=== PATIENT | male | born 1990 | race Caucasian/White ===

== ENCOUNTER 2018-01-13 00:11 | Inpatient (IN) ==
--- NOTE | 2018-01-13 00:38 | Emergency Department Note ---
Disposition Clinical Impression: Acute psychosis, TITUS (acute kidney injury), Uremia, Suicidal ideations Rhabdomyolysis Qualifiers: Rhabdomyolysis type: non-traumatic Qualified Code(s): M62.82 - Rhabdomyolysis Disposition: Admitted As Inpatient Condition: Fair Referrals: NONE,PCP [Primary Care Provider] - Forms: ED Satisfaction Letter Psych HPI - General Chief Complaint: ED Psychiatric Symptoms Stated Complaint: SI Time Seen by Provider: 01/13/18 00:22 Source: patient Nursing Notes Reviewed: Yes Vital Signs Reviewed: Yes - History of Present Illness HPI Narrative: 27-year-old male presents emergency department with concern for having suicidal thoughts. Reports no specific plan, but states that he was to kill himself. He also states that he is seeing things. Reports seeing people behind the couch watching him. He is not hearing any voices. Reports no pain anywhere. - Related Data Allergies Allergy/AdvReac Type Severity Reaction Status Date / Time No Known Allergies Allergy Verified 01/13/18 00:15 All systems ED: reviewed and negative except as stated. 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 Absent: respiratory distress - Cardiovascular Cardiovascular exam: Present: tachycardia - Abdominal Exam Abdominal exam: Present: soft, Non-Tender. Absent: distention, guarding, rebound, rigidity - Extremities Exam Extremities exam: Present: normal capillary refill - Neurological Exam Neurological exam: Present: alert, oriented X3 - Psychiatric Psychiatric exam: Present: anxious, suicidal ideation - Skin Skin exam: Present: warm, dry, intact, normal color Course Vital Signs Temperature 97.9 F 01/13/18 00:15 Pulse Rate 104 01/13/18 00:15 Respiratory Rate 18 01/13/18 00:15 Blood Pressure 121/95 01/13/18 00:15 O2 Sat by Pulse Oximetry 99 01/13/18 00:15 Temperature 97.9 F 01/13/18 00:15 Pulse Rate 96 01/13/18 03:00 Respiratory Rate 20 01/13/18 03:00 Blood Pressure 139/110 01/13/18 03:00 O2 Sat by Pulse Oximetry 100 01/13/18 03:00 Oxygen Delivery Oxygen Delivery Room Air Psych - MDM Narrative Medical decision making narrative: 27-year-old male presents emergency department with concern for suicidal thoughts, visual hallucinations. Patient appears very anxious. He was pink slipped. Patient has sodium of 122. Potassium of 2.7. BUN 120. Creatinine 4.62. No previous labs to compare this to. Patient was given 2 L of normal saline. He was given 40 mEq of oral potassium as well as 40 mEq of potassium via K rider. 2 g of magnesium were ordered as well. Patient's acute renal failure most likely secondary to drug ingestion and rhabdomyolysis as patient has a creatinine kinase of 4052. Patient reports using methamphetamine. Obtained EKG. Mildly prolonged QT interval and right axis deviation. Patient not expressing any symptoms of presyncope or syncope. Troponin was 0.04. Most likely secondary to his acute renal failure. No ischemic ST changes on EKG. Chest x-ray did not reveal any acute abnormality. Patient accepted for admission by the hospitalist. Chest X-Ray 01/13/18 02:54 IMPRESSION: No acute findings. D/ / Stephan Padilla / Stephan Padilla Interpreting Provider: Stephan Padilla Vital Signs Temperature 97.9 F 01/13/18 00:15 Pulse Rate 104 01/13/18 00:15 Respiratory Rate 18 01/13/18 00:15 Blood Pressure 121/95 01/13/18 00:15 O2 Sat by Pulse Oximetry 99 01/13/18 00:15 Temperature 97.9 F 01/13/18 00:15 Pulse Rate 96 01/13/18 03:00 Respiratory Rate 20 01/13/18 03:00 Blood Pressure 139/110 01/13/18 03:00 O2 Sat by Pulse Oximetry 100 01/13/18 03:00 Oxygen Delivery Oxygen Delivery Room Air - Lab Data Result diagrams: 01/13/18 00:40 01/13/18 00:40 Lab Results 01/13/18 01/13/18 01/13/18 Range/Units 00:32 00:32 00:32 WBC (4.3-11.1) K/mcL RBC (4.19-5.50) M/mcL Hgb (12.9-16.9) g/dL Hct (37.5-50.1) % MCV (83.0-100.0) fL MCH (28.0-33.3) pg MCHC (31.6-35.5) g/dL RDW (11.5-14.5) % Plt Count (140-400) K/mcL MPV (9.4-12.4) fL Immature Gran % (0-4) % Seg Neutrophils % % Lymphocytes % % Monocytes % % Eosinophils % % Basophils % % Neutrophils # (1.6-8.9) K/mcL Lymphocytes # (0.6-4.6) K/mcL Monocytes # (0.0-1.3) K/mcL Eosinophils # (0.0-0.6) K/mcL Basophils # (0.0-0.2) K/mcL Sodium (136-145) mEq/L Potassium (3.5-5.1) mEq/L Chloride (98-107) mEq/L Carbon Dioxide (23-29) mEq/L BUN (6-20) mg/dL Creatinine (0.70-1.30) mg/dL Est GFR ( Amer) (> 60) Est GFR (Non-Af Amer) (> 60) BUN/Creatinine Ratio (6-26) Glucose (70-105) mg/dL Calculated Osmolality (280-300) Lactic Acid (0.5-2.2) mmol/L Calcium (8.6-10.3) mg/dL Phosphorus (2.7-4.5) mg/dL Total Bilirubin (0.3-1.0) mg/dL Direct Bilirubin (0.0-0.2) mg/dL Indirect Bilirubin (0.0-1.2) mg/dL AST (13-39) Units/L ALT (7-52) Units/L Alkaline Phosphatase (34-104) Units/L Creatine Kinase (30-223) Units/L Troponin I (< 0.04) ng/mL B-Natriuretic Peptide (Less than 100) pg/mL Serum Total Protein (6.4-8.9) g/dL Albumin (3.5-5.7) g/dL Globulin (2.4-3.5) g/dL Albumin/Globulin Ratio (1.1-2.2) Urine Color Yellow (Yellow) Urine Clarity Clear (Clear) Urine pH 6.0 (5.0-8.0) pH Units Ur Specific [place] 1.020 (1.010-1.025) Urine Protein 30 H (Neg-Trace) mg/dL Urine Glucose (UA) Normal (Normal) mg/dL Urine Ketones Negative (Negative) mg/dL Urine Blood Moderate H (Negative) Urine Nitrite Negative (Negative) Urine Bilirubin Small H (Negative) Urine Urobilinogen Normal (Normal) mg/dL Ur Leukocyte Esterase Negative (Negative) Urine Microscopic RBC 0-3 (0-3) per hpf Urine Microscopic WBC 5-15 H (0-3) per hpf Ur Squamous Epith Cells Many H (None-Few) per lpf Urine Bacteria Few (None-Few) per hpf Hyaline Casts Few (None-Few) per lpf Urine Creatinine 165 mg/dL Urine Sodium 16.0 mEq/L Salicylates (15.0-30.0) mg/dL Urine Opiates Screen Negative (Thjfcc=691) ng/mL Acetaminophen (10-20) mcg/mL Ur Barbiturates Screen Negative (Iawwqv=992) ng/mL Ur Phencyclidine Scrn Negative (Cutoff=25) ng/mL Ur Amphetamines Screen Positive H (Vbenuc=0331) ng/mL U Benzodiazepines Scrn Negative (Vqogdu=956) ng/mL Urine Cocaine Screen Negative (Cutoff= 300) ng/mL U Marijuana (THC) Screen Negative (Cutoff = 50) ng/mL Ur Drug Screen Interp See Below Ethyl Alcohol (Less than 10) mg/dL 01/13/18 01/13/18 01/13/18 Range/Units 00:40 00:40 00:40 WBC 8.9 (4.3-11.1) K/mcL RBC 5.46 (4.19-5.50) M/mcL Hgb 16.1 (12.9-16.9) g/dL Hct 44.2 (37.5-50.1) % MCV 81.0 L (83.0-100.0) fL MCH 29.5 (28.0-33.3) pg MCHC 36.4 H (31.6-35.5) g/dL RDW 12.4 (11.5-14.5) % Plt Count 381 (140-400) K/mcL MPV 10.0 (9.4-12.4) fL Immature Gran % 0.3 (0-4) % Seg Neutrophils % 71.3 % Lymphocytes % 10.7 % Monocytes % 17.2 % Eosinophils % 0.3 % Basophils % 0.2 % Neutrophils # 6.4 (1.6-8.9) K/mcL Lymphocytes # 1.0 (0.6-4.6) K/mcL Monocytes # 1.5 H (0.0-1.3) K/mcL Eosinophils # 0.0 (0.0-0.6) K/mcL Basophils # 0.0 (0.0-0.2) K/mcL Sodium 122 L (136-145) mEq/L Potassium 2.7 L (3.5-5.1) mEq/L Chloride 84 L (98-107) mEq/L Carbon Dioxide 16 L (23-29) mEq/L BUN 120 H (6-20) mg/dL Creatinine 4.62 H (0.70-1.30) mg/dL Est GFR ( Amer) 19 L (> 60) Est GFR (Non-Af Amer) 15 L (> 60) BUN/Creatinine Ratio 26 (6-26) Glucose 167 H (70-105) mg/dL Calculated Osmolality 296 (280-300) Lactic Acid (0.5-2.2) mmol/L Calcium 9.0 (8.6-10.3) mg/dL Phosphorus 9.1 H (2.7-4.5) mg/dL Total Bilirubin 0.5 (0.3-1.0) mg/dL Direct Bilirubin 0.1 (0.0-0.2) mg/dL Indirect Bilirubin 0.4 (0.0-1.2) mg/dL AST 88 H (13-39) Units/L ALT 134 H (7-52) Units/L Alkaline Phosphatase 99 (34-104) Units/L Creatine Kinase 4052 H (30-223) Units/L Troponin I 0.04 H* (< 0.04) ng/mL B-Natriuretic Peptide (Less than 100) pg/mL Serum Total Protein 8.6 (6.4-8.9) g/dL Albumin 4.8 (3.5-5.7) g/dL Globulin 3.8 H (2.4-3.5) g/dL Albumin/Globulin Ratio 1.3 (1.1-2.2) Urine Color (Yellow) Urine Clarity (Clear) Urine pH (5.0-8.0) pH Units Ur Specific [place] (1.010-1.025) Urine Protein (Neg-Trace) mg/dL Urine Glucose (UA) (Normal) mg/dL Urine Ketones (Negative) mg/dL Urine Blood (Negative) Urine Nitrite (Negative) Urine Bilirubin (Negative) Urine Urobilinogen (Normal) mg/dL Ur Leukocyte Esterase (Negative) Urine Microscopic RBC (0-3) per hpf Urine Microscopic WBC (0-3) per hpf Ur Squamous Epith Cells (None-Few) per lpf Urine Bacteria (None-Few) per hpf Hyaline Casts (None-Few) per lpf Urine Creatinine mg/dL Urine Sodium mEq/L Salicylates < 2.5 L (15.0-30.0) mg/dL Urine Opiates Screen (Sebkiy=971) ng/mL Acetaminophen < 10 L (10-20) mcg/mL Ur Barbiturates Screen (Galqpb=132) ng/mL Ur Phencyclidine Scrn (Cutoff=25) ng/mL Ur Amphetamines Screen (Zquttz=8205) ng/mL U Benzodiazepines Scrn (Itlrux=353) ng/mL Urine Cocaine Screen (Cutoff= 300) ng/mL U Marijuana (THC) Screen (Cutoff = 50) ng/mL Ur Drug Screen Interp Ethyl Alcohol < 10 (Less than 10) mg/dL 01/13/18 01/13/18 Range/Units 02:13 02:54 WBC (4.3-11.1) K/mcL RBC (4.19-5.50) M/mcL Hgb (12.9-16.9) g/dL Hct (37.5-50.1) % MCV (83.0-100.0) fL MCH (28.0-33.3) pg MCHC (31.6-35.5) g/dL RDW (11.5-14.5) % Plt Count (140-400) K/mcL MPV (9.4-12.4) fL Immature Gran % (0-4) % Seg Neutrophils % % Lymphocytes % % Monocytes % % Eosinophils % % Basophils % % Neutrophils # (1.6-8.9) K/mcL Lymphocytes # (0.6-4.6) K/mcL Monocytes # (0.0-1.3) K/mcL Eosinophils # (0.0-0.6) K/mcL Basophils # (0.0-0.2) K/mcL Sodium (136-145) mEq/L Potassium (3.5-5.1) mEq/L Chloride (98-107) mEq/L Carbon Dioxide (23-29) mEq/L BUN (6-20) mg/dL Creatinine (0.70-1.30) mg/dL Est GFR ( Amer) (> 60) Est GFR (Non-Af Amer) (> 60) BUN/Creatinine Ratio (6-26) Glucose (70-105) mg/dL Calculated Osmolality (280-300) Lactic Acid 1.1 (0.5-2.2) mmol/L Calcium (8.6-10.3) mg/dL Phosphorus (2.7-4.5) mg/dL Total Bilirubin (0.3-1.0) mg/dL Direct Bilirubin (0.0-0.2) mg/dL Indirect Bilirubin (0.0-1.2) mg/dL AST (13-39) Units/L ALT (7-52) Units/L Alkaline Phosphatase (34-104) Units/L Creatine Kinase (30-223) Units/L Troponin I (< 0.04) ng/mL B-Natriuretic Peptide 18 (Less than 100) pg/mL Serum Total Protein (6.4-8.9) g/dL Albumin (3.5-5.7) g/dL Globulin (2.4-3.5) g/dL Albumin/Globulin Ratio (1.1-2.2) Urine Color (Yellow) Urine Clarity (Clear) Urine pH (5.0-8.0) pH Units Ur Specific [place] (1.010-1.025) Urine Protein (Neg-Trace) mg/dL Urine Glucose (UA) (Normal) mg/dL Urine Ketones (Negative) mg/dL Urine Blood (Negative) Urine Nitrite (Negative) Urine Bilirubin (Negative) Urine Urobilinogen (Normal) mg/dL Ur Leukocyte Esterase (Negative) Urine Microscopic RBC (0-3) per hpf Urine Microscopic WBC (0-3) per hpf Ur Squamous Epith Cells (None-Few) per lpf Urine Bacteria (None-Few) per hpf Hyaline Casts (None-Few) per lpf Urine Creatinine mg/dL Urine Sodium mEq/L Salicylates (15.0-30.0) mg/dL Urine Opiates Screen (Ercyju=837) ng/mL Acetaminophen (10-20) mcg/mL Ur Barbiturates Screen (Fsgwmw=242) ng/mL Ur Phencyclidine Scrn (Cutoff=25) ng/mL Ur Amphetamines Screen (Ytsxty=0657) ng/mL U Benzodiazepines Scrn (Osphdi=026) ng/mL Urine Cocaine Screen (Cutoff= 300) ng/mL U Marijuana (THC) Screen (Cutoff = 50) ng/mL Ur Drug Screen Interp Ethyl Alcohol (Less than 10) mg/dL - EKG Data EKG attestation: Yes I reviewed and interpreted this EKG. EKG results narrative: 1:54 Heart rate 95 bpm, UT interval 125 ms, QRS duration 112 ms, QTC 493 ms, right axis deviation. Left ventricular hypertrophy, no ischemic ST changes noted. No previous EKG to compare this study to. Psychiatric Medical Clearance - Medical Clearance Checklist Medical History: No Social History Section defined Current Vitals: Last Vital Signs Temp 97.9 F 01/13/18 00:15 Pulse 96 01/13/18 03:00 Resp 20 01/13/18 03:00 BP 139/110 01/13/18 03:00 Pulse Ox 100 01/13/18 03:00 Psychiatric Lab Panel: Drug Levels and Toxicity 01/13/18 01/13/18 00:32 00:40 Urine Opiates Screen Negative Acetaminophen < 10 L Ur Barbiturates Screen Negative Ur Phencyclidine Scrn Negative Ur Amphetamines Screen Positive H U Benzodiazepines Scrn Negative Urine Cocaine Screen Negative U Marijuana (THC) Screen Negative Ethyl Alcohol < 10 Abnormal Labs: Abnormal lab results MCV 81.0 fL (83.0-100.0) L 10/12/18 00:40 MCHC 36.4 g/dL (31.6-35.5) H 01/13/18 00:40 Monocytes # 1.5 K/mcL (0.0-1.3) H 01/13/18 00:40 Sodium 122 mEq/L (136-145) L 01/13/18 00:40 Potassium 2.7 mEq/L (3.5-5.1) L 01/13/18 00:40 Chloride 84 mEq/L (98-107) L 01/13/18 00:40 Carbon Dioxide 16 mEq/L (23-29) L 01/13/18 00:40 BUN 120 mg/dL (6-20) H 01/13/18 00:40 Creatinine 4.62 mg/dL (0.70-1.30) H 01/13/18 00:40 Est GFR ( Amer) 19 (> 60) L 01/13/18 00:40 Est GFR (Non-Af Amer) 15 (> 60) L 01/13/18 00:40 Glucose 167 mg/dL (70-105) H 01/13/18 00:40 Phosphorus 9.1 mg/dL (2.7-4.5) H 01/13/18 00:40 AST 88 Units/L (13-39) H 01/13/18 00:40 ALT 134 Units/L (7-52) H 01/13/18 00:40 Creatine Kinase 4052 Units/L (30-223) H 01/13/18 00:40 Troponin I 0.04 ng/mL (< 0.04) H* 01/13/18 00:40 Globulin 3.8 g/dL (2.4-3.5) H 01/13/18 00:40 Urine Protein 30 mg/dL (Neg-Trace) H 01/13/18 00:32 Urine Blood Moderate (Negative) H 01/13/18 00:32 Urine Bilirubin Small (Negative) H 01/13/18 00:32 Urine Microscopic WBC 5-15 per hpf (0-3) H 01/13/18 00:32 Ur Squamous Epith Cells Many per lpf (None-Few) H 01/13/18 00:32 Salicylates < 2.5 mg/dL (15.0-30.0) L 01/13/18 00:40 Acetaminophen < 10 mcg/mL (10-20) L 01/13/18 00:40 Ur Amphetamines Screen Positive ng/mL (Avmuml=3385) H 01/13/18 00:32 Statement of Medical Clearance: I have evaluated the patient, reviewed diagnostic information, and certify that the patient's medical condition is sufficiently stable that transfer to the psychiatric unit does not pose a significant risk of deterioration.
[2018-01-13 00:50] LABS: Bilirubin,Urine Small (Negative); Blood,Urine Moderate (Negative); Clarity,Urine Clear (Clear); Color,Urine Yellow (Yellow); Glucose,Urine (UA) Normal (Normal); Ketones,Urine Negative (Negative); Leukocyte Esterase,Urine Negative (Negative); Nitrite,Urine Negative (Negative); Protein,Urine 30 mg/dL (Neg-Trace); Urobilinogen,Urine Normal (Normal)
[2018-01-13 00:52] LABS: Hyaline Casts,Urine Few per lpf (None-Few); RBC,Urine 0-3 per hpf (0-3); Squamous Epithelial Cell,Urine Many per lpf (None-Few)
[2018-01-13 01:02] LABS: Amphetamine Screen,Urine Positive ng/mL (Cutoff=1000); Barbiturate Screen,Urine Negative ng/mL (Cutoff=200); Benzodiazepines Screen,Urine Negative ng/mL (Cutoff=200); Cannabinoid Screen,Urine Negative ng/mL (Cutoff = 50); Cocaine Screen,Urine Negative ng/mL (Cutoff= 300); Opiate Screen,Urine Negative ng/mL (Cutoff=300); Phencyclidine Screen,Urine Negative ng/mL (Cutoff=25)
[2018-01-13 01:08] LABS: Bacteria,Urine Few per hpf (None-Few)
[2018-01-13 01:29] LABS: Basophils % 0.2 %; Eosinophils % 0.3 %; Hematocrit 44.2 % (37.5-50.1); Hemoglobin 16.1 g/dL (12.9-16.9); Immature Granulocytes % 0.3 % (0-4); Lymphocytes % 10.7 %; Mean Corpuscular HGB Conc 36.4 g/dL (31.6-35.5); Mean Corpuscular Hemoglobin 29.5 pg (28.0-33.3); Monocytes # 1.5 K/mcL (0.0-1.3); Monocytes % 17.2 %; Neutrophils # 6.4 K/mcL (1.6-8.9); Platelet Count 381 K/mcL (140-400); Red Blood Count 5.46 M/mcL (4.19-5.50); Red Cell Distribution Width 12.4 % (11.5-14.5); Segmented Neutrophils % 71.3 %
[2018-01-13 01:32] LABS: Acetaminophen < 10 mcg/mL (10-20); BUN/Creatinine Ratio 26 (6-26); Blood Urea Nitrogen 120 mg/dL (6-20); Carbon Dioxide 16 mEq/L (23-29); Chloride 84 mEq/L (98-107); Ethanol < 10 mg/dL (Less than 10); Glucose 167 mg/dL (70-105); Osmolality,Calculated 296 (280-300); Potassium 2.7 mEq/L (3.5-5.1); Salicylate < 2.5 mg/dL (15.0-30.0); Sodium 122 mEq/L (136-145); eGFR For Non-African Americans 15 (> 60)
[2018-01-13] MEDS ORDERED: 0.9 % Sodium Chloride 1,000 ML IVC ONE (01:40)
[2018-01-13] MEDS ORDERED: Potassium Chloride 40 MEQ, Lidocaine 1% 2 ML in D5% in Water 500 ML IVPB ONE (01:43)
[2018-01-13] MEDS ORDERED: *HR* LORazepam 2 MG/ML VIAL IVP ONE (01:46)
[2018-01-13 03:53] LABS: Alanine Aminotransferase 134 Units/L (7-52); Albumin 4.8 g/dL (3.5-5.7); Albumin/Globulin Ratio 1.3 (1.1-2.2); Alkaline Phosphatase 99 Units/L (34-104); Aspartate Amino Transferase 88 Units/L (13-39); Bilirubin,Direct 0.1 mg/dL (0.0-0.2); Bilirubin,Indirect 0.4 mg/dL (0.0-1.2); Bilirubin,Total 0.5 mg/dL (0.3-1.0); Globulin 3.8 g/dL (2.4-3.5); Phosphorous 9.1 mg/dL (2.7-4.5); Total Protein 8.6 g/dL (6.4-8.9)
--- NOTE | 2018-01-13 03:57 | Emergency Department Note ---
Disposition Clinical Impression: Acute psychosis, TITUS (acute kidney injury), Uremia, Suicidal ideations Rhabdomyolysis Qualifiers: Rhabdomyolysis type: non-traumatic Qualified Code(s): M62.82 - Rhabdomyolysis Disposition: Admitted As Inpatient Condition: Fair Referrals: NONE,PCP [Primary Care Provider] - Forms: ED Satisfaction Letter General Adult HPI - General Chief complaint: ED Psychiatric Symptoms Stated complaint: SI Time Seen by Provider: 01/13/18 00:22 Source: patient Limitations: no limitations Nursing Notes Reviewed: Yes Vital Signs Reviewed: Yes - History of Present Illness Pain Scale: 0 - Related Data Allergies Allergy/AdvReac Type Severity Reaction Status Date / Time No Known Allergies Allergy Verified 01/13/18 00:15 Constitutional: Denies: fever Cardiovascular: Denies: chest pain Respiratory: Denies: dyspnea Gastrointestinal: Denies: abdominal pain Genitourinary: Reports: other (Decreased urine output) Musculoskeletal: Denies: back pain Integumentary: Denies: rash Neurological: Denies: headache Past Medical History - Past Medical History Medical history: Reports: no medical history Psychiatric history: Reports: anxiety, ADHD, bipolar - Social History Smoking Status: Never smoker Smokeless Tobacco Status: Yes Alcohol use: Reports: none Drug use: Reports: methamphetamine Physical Exam - General Limitations: no limitations General appearance: alert Course Vital Signs Temperature 97.9 F 01/13/18 00:15 Pulse Rate 104 01/13/18 00:15 Respiratory Rate 18 01/13/18 00:15 Blood Pressure 121/95 01/13/18 00:15 O2 Sat by Pulse Oximetry 99 01/13/18 00:15 Temperature 97.9 F 01/13/18 00:15 Pulse Rate 96 01/13/18 03:00 Respiratory Rate 20 01/13/18 03:00 Blood Pressure 139/110 01/13/18 03:00 O2 Sat by Pulse Oximetry 100 01/13/18 03:00 Oxygen Delivery Oxygen Delivery Room Air Medical Decision Making - Lab Data Lab results reviewed: Yes I reviewed the patient's lab results. Result diagrams: 01/13/18 00:40 01/13/18 00:40 Lab Results 01/13/18 01/13/18 01/13/18 Range/Units 00:32 00:32 00:32 WBC (4.3-11.1) K/mcL RBC (4.19-5.50) M/mcL Hgb (12.9-16.9) g/dL Hct (37.5-50.1) % MCV (83.0-100.0) fL MCH (28.0-33.3) pg MCHC (31.6-35.5) g/dL RDW (11.5-14.5) % Plt Count (140-400) K/mcL MPV (9.4-12.4) fL Immature Gran % (0-4) % Seg Neutrophils % % Lymphocytes % % Monocytes % % Eosinophils % % Basophils % % Neutrophils # (1.6-8.9) K/mcL Lymphocytes # (0.6-4.6) K/mcL Monocytes # (0.0-1.3) K/mcL Eosinophils # (0.0-0.6) K/mcL Basophils # (0.0-0.2) K/mcL Sodium (136-145) mEq/L Potassium (3.5-5.1) mEq/L Chloride (98-107) mEq/L Carbon Dioxide (23-29) mEq/L BUN (6-20) mg/dL Creatinine (0.70-1.30) mg/dL Est GFR ( Amer) (> 60) Est GFR (Non-Af Amer) (> 60) BUN/Creatinine Ratio (6-26) Glucose (70-105) mg/dL Calculated Osmolality (280-300) Lactic Acid (0.5-2.2) mmol/L Calcium (8.6-10.3) mg/dL Phosphorus (2.7-4.5) mg/dL Total Bilirubin (0.3-1.0) mg/dL Direct Bilirubin (0.0-0.2) mg/dL Indirect Bilirubin (0.0-1.2) mg/dL AST (13-39) Units/L ALT (7-52) Units/L Alkaline Phosphatase (34-104) Units/L Creatine Kinase (30-223) Units/L Troponin I (< 0.04) ng/mL B-Natriuretic Peptide (Less than 100) pg/mL Serum Total Protein (6.4-8.9) g/dL Albumin (3.5-5.7) g/dL Globulin (2.4-3.5) g/dL Albumin/Globulin Ratio (1.1-2.2) Urine Color Yellow (Yellow) Urine Clarity Clear (Clear) Urine pH 6.0 (5.0-8.0) pH Units Ur Specific [place] 1.020 (1.010-1.025) Urine Protein 30 H (Neg-Trace) mg/dL Urine Glucose (UA) Normal (Normal) mg/dL Urine Ketones Negative (Negative) mg/dL Urine Blood Moderate H (Negative) Urine Nitrite Negative (Negative) Urine Bilirubin Small H (Negative) Urine Urobilinogen Normal (Normal) mg/dL Ur Leukocyte Esterase Negative (Negative) Urine Microscopic RBC 0-3 (0-3) per hpf Urine Microscopic WBC 5-15 H (0-3) per hpf Ur Squamous Epith Cells Many H (None-Few) per lpf Urine Bacteria Few (None-Few) per hpf Hyaline Casts Few (None-Few) per lpf Urine Creatinine 165 mg/dL Urine Sodium 16.0 mEq/L Salicylates (15.0-30.0) mg/dL Urine Opiates Screen Negative (Uemiyn=127) ng/mL Acetaminophen (10-20) mcg/mL Ur Barbiturates Screen Negative (Ofkgqu=490) ng/mL Ur Phencyclidine Scrn Negative (Cutoff=25) ng/mL Ur Amphetamines Screen Positive H (Ojwjnu=5653) ng/mL U Benzodiazepines Scrn Negative (Ilyvkf=403) ng/mL Urine Cocaine Screen Negative (Cutoff= 300) ng/mL U Marijuana (THC) Screen Negative (Cutoff = 50) ng/mL Ur Drug Screen Interp See Below Ethyl Alcohol (Less than 10) mg/dL 01/13/18 01/13/18 01/13/18 Range/Units 00:40 00:40 00:40 WBC 8.9 (4.3-11.1) K/mcL RBC 5.46 (4.19-5.50) M/mcL Hgb 16.1 (12.9-16.9) g/dL Hct 44.2 (37.5-50.1) % MCV 81.0 L (83.0-100.0) fL MCH 29.5 (28.0-33.3) pg MCHC 36.4 H (31.6-35.5) g/dL RDW 12.4 (11.5-14.5) % Plt Count 381 (140-400) K/mcL MPV 10.0 (9.4-12.4) fL Immature Gran % 0.3 (0-4) % Seg Neutrophils % 71.3 % Lymphocytes % 10.7 % Monocytes % 17.2 % Eosinophils % 0.3 % Basophils % 0.2 % Neutrophils # 6.4 (1.6-8.9) K/mcL Lymphocytes # 1.0 (0.6-4.6) K/mcL Monocytes # 1.5 H (0.0-1.3) K/mcL Eosinophils # 0.0 (0.0-0.6) K/mcL Basophils # 0.0 (0.0-0.2) K/mcL Sodium 122 L (136-145) mEq/L Potassium 2.7 L (3.5-5.1) mEq/L Chloride 84 L (98-107) mEq/L Carbon Dioxide 16 L (23-29) mEq/L BUN 120 H (6-20) mg/dL Creatinine 4.62 H (0.70-1.30) mg/dL Est GFR ( Amer) 19 L (> 60) Est GFR (Non-Af Amer) 15 L (> 60) BUN/Creatinine Ratio 26 (6-26) Glucose 167 H (70-105) mg/dL Calculated Osmolality 296 (280-300) Lactic Acid (0.5-2.2) mmol/L Calcium 9.0 (8.6-10.3) mg/dL Phosphorus 9.1 H (2.7-4.5) mg/dL Total Bilirubin 0.5 (0.3-1.0) mg/dL Direct Bilirubin 0.1 (0.0-0.2) mg/dL Indirect Bilirubin 0.4 (0.0-1.2) mg/dL AST 88 H (13-39) Units/L ALT 134 H (7-52) Units/L Alkaline Phosphatase 99 (34-104) Units/L Creatine Kinase 4052 H (30-223) Units/L Troponin I 0.04 H* (< 0.04) ng/mL B-Natriuretic Peptide (Less than 100) pg/mL Serum Total Protein 8.6 (6.4-8.9) g/dL Albumin 4.8 (3.5-5.7) g/dL Globulin 3.8 H (2.4-3.5) g/dL Albumin/Globulin Ratio 1.3 (1.1-2.2) Urine Color (Yellow) Urine Clarity (Clear) Urine pH (5.0-8.0) pH Units Ur Specific [place] (1.010-1.025) Urine Protein (Neg-Trace) mg/dL Urine Glucose (UA) (Normal) mg/dL Urine Ketones (Negative) mg/dL Urine Blood (Negative) Urine Nitrite (Negative) Urine Bilirubin (Negative) Urine Urobilinogen (Normal) mg/dL Ur Leukocyte Esterase (Negative) Urine Microscopic RBC (0-3) per hpf Urine Microscopic WBC (0-3) per hpf Ur Squamous Epith Cells (None-Few) per lpf Urine Bacteria (None-Few) per hpf Hyaline Casts (None-Few) per lpf Urine Creatinine mg/dL Urine Sodium mEq/L Salicylates < 2.5 L (15.0-30.0) mg/dL Urine Opiates Screen (Qqerso=293) ng/mL Acetaminophen < 10 L (10-20) mcg/mL Ur Barbiturates Screen (Bmugng=417) ng/mL Ur Phencyclidine Scrn (Cutoff=25) ng/mL Ur Amphetamines Screen (Euuiua=6717) ng/mL U Benzodiazepines Scrn (Rbqler=828) ng/mL Urine Cocaine Screen (Cutoff= 300) ng/mL U Marijuana (THC) Screen (Cutoff = 50) ng/mL Ur Drug Screen Interp Ethyl Alcohol < 10 (Less than 10) mg/dL 01/13/18 01/13/18 Range/Units 02:13 02:54 WBC (4.3-11.1) K/mcL RBC (4.19-5.50) M/mcL Hgb (12.9-16.9) g/dL Hct (37.5-50.1) % MCV (83.0-100.0) fL MCH (28.0-33.3) pg MCHC (31.6-35.5) g/dL RDW (11.5-14.5) % Plt Count (140-400) K/mcL MPV (9.4-12.4) fL Immature Gran % (0-4) % Seg Neutrophils % % Lymphocytes % % Monocytes % % Eosinophils % % Basophils % % Neutrophils # (1.6-8.9) K/mcL Lymphocytes # (0.6-4.6) K/mcL Monocytes # (0.0-1.3) K/mcL Eosinophils # (0.0-0.6) K/mcL Basophils # (0.0-0.2) K/mcL Sodium (136-145) mEq/L Potassium (3.5-5.1) mEq/L Chloride (98-107) mEq/L Carbon Dioxide (23-29) mEq/L BUN (6-20) mg/dL Creatinine (0.70-1.30) mg/dL Est GFR ( Amer) (> 60) Est GFR (Non-Af Amer) (> 60) BUN/Creatinine Ratio (6-26) Glucose (70-105) mg/dL Calculated Osmolality (280-300) Lactic Acid 1.1 (0.5-2.2) mmol/L Calcium (8.6-10.3) mg/dL Phosphorus (2.7-4.5) mg/dL Total Bilirubin (0.3-1.0) mg/dL Direct Bilirubin (0.0-0.2) mg/dL Indirect Bilirubin (0.0-1.2) mg/dL AST (13-39) Units/L ALT (7-52) Units/L Alkaline Phosphatase (34-104) Units/L Creatine Kinase (30-223) Units/L Troponin I (< 0.04) ng/mL B-Natriuretic Peptide 18 (Less than 100) pg/mL Serum Total Protein (6.4-8.9) g/dL Albumin (3.5-5.7) g/dL Globulin (2.4-3.5) g/dL Albumin/Globulin Ratio (1.1-2.2) Urine Color (Yellow) Urine Clarity (Clear) Urine pH (5.0-8.0) pH Units Ur Specific [place] (1.010-1.025) Urine Protein (Neg-Trace) mg/dL Urine Glucose (UA) (Normal) mg/dL Urine Ketones (Negative) mg/dL Urine Blood (Negative) Urine Nitrite (Negative) Urine Bilirubin (Negative) Urine Urobilinogen (Normal) mg/dL Ur Leukocyte Esterase (Negative) Urine Microscopic RBC (0-3) per hpf Urine Microscopic WBC (0-3) per hpf Ur Squamous Epith Cells (None-Few) per lpf Urine Bacteria (None-Few) per hpf Hyaline Casts (None-Few) per lpf Urine Creatinine mg/dL Urine Sodium mEq/L Salicylates (15.0-30.0) mg/dL Urine Opiates Screen (Lmeerk=207) ng/mL Acetaminophen (10-20) mcg/mL Ur Barbiturates Screen (Xhqkdr=948) ng/mL Ur Phencyclidine Scrn (Cutoff=25) ng/mL Ur Amphetamines Screen (Qvaicf=2597) ng/mL U Benzodiazepines Scrn (Nqramm=863) ng/mL Urine Cocaine Screen (Cutoff= 300) ng/mL U Marijuana (THC) Screen (Cutoff = 50) ng/mL Ur Drug Screen Interp Ethyl Alcohol (Less than 10) mg/dL - Radiology Data Radiology results reviewed: Yes I reviewed the patient's radiology results. Chest X-Ray 01/13/18 02:54 IMPRESSION: No acute findings. D/ / Stephan Padilla / Stephan Padilla Interpreting Provider: Stephan Padilla - EKG Data EKG #1 EKG attestation: Yes I reviewed and interpreted this EKG. EKG results narrative: EKG shows a normal sinus rhythm with ventricular rate of 90. Probable LVH. No acute ST segment elevation or depression. No arrhythmia or ectopy. Critical Care Time Critical Care Time: Yes Total Critical Care Time: 45 Attestation: Critical care performed: Time is exclusive of separately billable procedures. Time includes: direct patient care, patient reassessment, coordination of patient care, interpretation of data (laboratory data, radiology data, and respiratory data), review of patient's medical records, medical consultation and documentation of patient care. Procedures included in critical care time: Procedures excluded from critical care time: Attestation Statement - Attestation Attestation: I, Stanford Portillo MD, personally evaluated this patient and discussed their management with the resident physician. I reviewed the resident's note and agree with the documented findings, medical decision making, and plan of care. 27-year-old male presents to the emergency department with a complaint of suicidal ideation which started about a week prior to arrival. He denies prior history of suicidal ideation. He has no specific plan. He also complains of having visual hallucinations. He states that he sees people behind his couch that are trying to touch his girlfriends butt. He denies auditory hallucinations. He denies homicidal ideation. He does admit to drug use, primarily meth. He also admits to heroin use occasionally. He admits to drinking alcohol just occasionally. He complains of just feeling restless and extremely anxious. Some generalized itching. No chest pain or shortness of breath. No abdominal pain. No vomiting or diarrhea. No urinary symptoms. No GI bleed symptoms. No fever. On examination patient is a well-developed well-nourished young male in no acute distress. He is very anxious and restless. He is alert and oriented 3. There is no cyanosis or diaphoresis. Chest is nontender to palpation. Breath sounds are clear and equal bilaterally. Heart regular rate and rhythm. Abdomen is soft and nontender with normal bowel sounds. No pedal edema. No gross focal neurological deficits. Labs for psychiatric medical clearance were obtained and patient was found to have acute renal failure with BNP of 120 and creatinine of 4.62. Sodium 122. Potassium 2.7. AST 88. ALT 134. Troponin 0.04. CK 4052. Urine tox screen was positive for amphetamines. EKG shows a normal sinus rhythm with ventricular rate of 90. Probable left ventricular hypertrophy. No acute ST segment elevation or depression. Chest x-ray negative. Patient received 2 L of normal saline. 2 g of magnesium sulfate IV. 40 mEq of potassium IV over 4 hours. 40 mEq of potassium by mouth. Application for emergency psychiatric admission form (pink slip) completed and signed. The hospitalist, Dr. Quiroz, was consulted and accepted admission of the patient.
[2018-01-13 04:13] LABS: Creatine Kinase 4052 Units/L (30-223)
[2018-01-13] MEDS ORDERED: Naloxone 0.4 MG/ML INJ IVP PRN (04:33)
[2018-01-13] MEDS ORDERED: 0.9 % Sodium Chloride 1,000 ML ONE (04:44)
--- NOTE | 2018-01-13 05:11 | Internal Med History&Physical ---
<Giovanny Almanza Dewayne - Last Filed: 01/13/18 06:38> Date of Encounter: 01/13/18 Time of Encounter: 05:11 Internal Medicine - H&P: HPI Chief complaint: Suicidal Ideation Admitted From: Emergency Dept Plans for Post Hospital Care: Transfer Psych Facility History of present illness: Mr. Acosta is a 27 year old male with a past medical history of anxiety, ADHD , bipolar disorder. He presented to the emergency department with the chief complaints of suicidal ideation and visual hallucinations. According to the emergency department documentation his girlfriend kicked him out after he went on a drug binge and he presented to the emergency department with suicidal ideation. In the emergency department vital signs and CBC were within normal limits and the patient was alert and oriented 3. However CMP demonstrated sodium 122, potassium 2.7, creatinine 4.6, phosphorus 9.1, AST 88, ALC 134, CK 4052, troponin 0.04. Drug screen positive for amphetamines. Hepatitis C Ab screen positive. Chest XRay negative for acute process, EKG demonstrates mildly prolonged QT interval but otherwise sinus rhythm and normal rate. The patient was given 1 mg of Ativan for anxiety, 2 g of magnesium sulfate, 40 mEq by mouth potassium, 40 mEq IV potassium, 2 L normal saline. On my examination the patient is agitated and writhing in bed. On questioning the patient does not respond to most of my questions and is only minimally responsive to physical stimuli. He is able to tell me that he is in the hospital and that he took meth and heroin but is otherwise not able to answer my questions. Past Med Surg Social Fam HX - Past Medical History Medical history: no medical history Psychiatric history: anxiety, ADHD, bipolar - Social History Smoking Status: Never smoker Smokeless Tobacco Status: Yes Alcohol use: none Drug use: methamphetamine - Additional Family History Additional family history: Unable to obtain due to altered mental status. Internal Medicine - H&P: Meds 3 Allergy/AdvReac Type Severity Reaction Status Date / Time No Known Allergies Allergy Verified 01/13/18 00:15 ROS unobtainable: due to mental status All Systems PM: A 10-system review of systems was performed and is negative for pertinent findings except as documented above in the HPI. - Constitutional Vitals: Temp Pulse Resp BP Pulse Ox 97.9 F 96 20 139/110 100 01/13/18 00:15 01/13/18 03:00 01/13/18 03:00 01/13/18 03:00 01/13/18 03:00 Exam: On exam patient is in mild distress, intermittently responsive to verbal and physical stimuli Orientation appears labile, he is able to answer to his name and tell me he is at the hospital Head appears atraumatic and normocephalic Patient is able to make eye contact intermittently, PERRL Mucous membranes moist Heart in regular rate and rhythm Lungs clear to auscultation bilaterally Abdomen soft and patient does not respond to palpation, bowel sounds normal Extremities appear atraumatic, without edema or erythema wounds Skin heavily covered in tattoos, warm and dry Internal Med - H&P Results - Labs CBC & Chem 7: 01/13/18 05:18 01/13/18 05:18 Labs: Short CBC 01/13/18 Range/Units 00:40 WBC 8.9 (4.3-11.1) K/mcL Hgb 16.1 (12.9-16.9) g/dL Hct 44.2 (37.5-50.1) % Plt Count 381 (140-400) K/mcL Neutrophils # 6.4 (1.6-8.9) K/mcL BMP 01/13/18 00:40 Sodium 122 L Potassium 2.7 L Chloride 84 L Carbon Dioxide 16 L BUN 120 H Creatinine 4.62 H Glucose 167 H Calcium 9.0 Cardiac Enzymes 01/13/18 Range/Units 00:40 Troponin I 0.04 H* (< 0.04) ng/mL Liver Function 01/13/18 Range/Units 00:40 Total Bilirubin 0.5 (0.3-1.0) mg/dL Direct Bilirubin 0.1 (0.0-0.2) mg/dL AST 88 H (13-39) Units/L ALT 134 H (7-52) Units/L Alkaline Phosphatase 99 (34-104) Units/L Albumin 4.8 (3.5-5.7) g/dL Urine 01/13/18 Range/Units 00:32 Urine Color Yellow (Yellow) Urine Clarity Clear (Clear) Urine pH 6.0 (5.0-8.0) pH Units Ur Specific [place] 1.020 (1.010-1.025) Urine Protein 30 H (Neg-Trace) mg/dL Urine Glucose (UA) Normal (Normal) mg/dL - Impressions ITS Impressions Chest X-Ray 01/13/18 02:54 IMPRESSION: No acute findings. D/ / Stephan Padilla / Stephan Padilla Interpreting Provider: Stephan Padilla - Assessment and plan (1) Altered mental status Current Visit: Yes Status: Acute Assessment and plan: Patient was admitted for suicidal ideation and visual hallucinations Based on emergency department documentation he was alert and oriented 3 on presentation He was given 1 mg IV Ativan in the emergency department On my exam the patient is intermittently arousable and orientation is labile Patient's labs also demonstrate acute kidney injury and rhabdomyolysis Drug screen was positive for amphetamines Differentials include acute benzodiazepine intoxication, latent other drug intoxication, pH disorder Plan Patient has a sitter Hold further benzodiazepines Blood osmolality, methanol, ethylene glycol, acetaminophen ABG pending NS MIVF 125ml/hr Continuous cardiac monitoring Continuous pulse oximetry Qualifiers: Altered mental status type: transient alteration of awareness Qualified Code(s): R40.4 - Transient alteration of awareness (2) Intoxication Current Visit: Yes Status: Acute Assessment and plan: Patient admitted to using amphetamines which was revealed on his urine drug screen However he also admitted to using heroin which did not show up on his drug screen Due to his suicidal ideation I am also concerned about overdose with non- recreational drugs Plan as seen above (3) TITUS (acute kidney injury) Current Visit: Yes Status: Acute Assessment and plan: Patient presented with creatinine 4.6, repeat creatinine after 2 L normal saline 3.2 Patient does not have prior labs to compare for baseline however he does not have documented history of kidney failure Kidney injury likely secondary to drug intoxication and volume depletion and rhabdomyolysis Plan Continue fluid resuscitation NS MIVF 125ml/hr Continue to closely monitor renal function Avoid nephrotoxins and renally dose medications ABG pending to determine presence of pH disorder Nephrology consult (4) Rhabdomyolysis Current Visit: Yes Status: Acute Assessment and plan: CK on presentation 4052, repeat after 2 L normal saline 3216 Rhabdomyolysis likely secondary to drug intoxication, hypovolemia Plan Continue fluid resuscitation and trend CK Qualifiers: Rhabdomyolysis type: non-traumatic Qualified Code(s): M62.82 - Rhabdomyolysis (5) Hepatitis C antibody test positive Current Visit: Yes Status: Acute Assessment and plan: Hepatitis C antibody test positive Consider GI consult once medically stable (6) Suicidal ideations Current Visit: Yes Status: Acute Assessment and plan: Patient admitted to suicidal ideation on presentation However he denied continued suicidal ideation on my exam However he was altered on my exam Plan Transfer to [facility] once clinical disposition stable (7) Elevated troponin Current Visit: Yes Status: Acute Assessment and plan: Troponin 0.04 on presentation, improved to less than 0.03 after 2 L normal saline Original elevated troponin likely secondary to drug use/hypovolemia/ rhabdomyolysis We will continue to trend troponins and monitor cardiac activity (8) Hypokalemia Current Visit: Yes Status: Acute Assessment and plan: Potassium 2.7 on presentation, improved to 3.0 after replacement Continue to trend and replace as necessary (9) Hyperphosphatemia Current Visit: Yes Status: Acute Assessment and plan: Elevated to 9.1 on presentation, improved to 6.9 after 2 L normal saline Continue to monitor - Time Spent With Patient Total time spent is greater than 50% in coordination of care (as documented) at patient's floor/unit and/or counseling patient: <Chuy Gonzalez - Last Filed: 01/13/18 06:51> Date of Encounter: 01/13/18 Internal Medicine - H&P: HPI History of present illness: Mr. Acosta is a 27 year old male All Systems PM: A 10-system review of systems was performed and is negative for pertinent findings except as documented above in the HPI. - Constitutional Vitals: Temp Pulse Resp BP Pulse Ox 97.9 F 92 18 134/94 100 01/13/18 00:15 01/13/18 06:35 01/13/18 06:35 01/13/18 06:35 01/13/18 06:35 Internal Med - H&P Results - Labs CBC & Chem 7: 01/13/18 05:18 01/13/18 05:18 - Assessment and plan (1) TITUS (acute kidney injury) Current Visit: Yes Status: Acute (2) Suicidal ideations Current Visit: Yes Status: Acute (3) Rhabdomyolysis Current Visit: Yes Status: Acute Qualifiers: Rhabdomyolysis type: non-traumatic Qualified Code(s): M62.82 - Rhabdomyolysis (4) Altered mental status Current Visit: Yes Status: Acute Qualifiers: Altered mental status type: transient alteration of awareness Qualified Code(s): R40.4 - Transient alteration of awareness (5) Hepatitis C antibody test positive Current Visit: Yes Status: Acute (6) Intoxication Current Visit: Yes Status: Acute (7) Elevated troponin Current Visit: Yes Status: Acute (8) Hypokalemia Current Visit: Yes Status: Acute (9) Hyperphosphatemia Current Visit: Yes Status: Acute - Time Spent With Patient Total time spent is greater than 50% in coordination of care (as documented) at patient's floor/unit and/or counseling patient: - Attending Attestation Patient seen and examined. Chart reviewed. Case discussed with resident. Agree with assessment and plan. Acute renal failure with multiple electrolyte derangements and no evidence of rhabdomyolysis in the setting of amphetamine use. We will continue aggressive fluid hydration. Repeat CMP And monitor electrolytes. Patient remains altered after administration of benzos. We will obtain ABGs. Nephrology consult for the morning. Consider GI consult once current condition improves given possible underlying hepatitis C infection.
[2018-01-13 05:28] LABS: Hepatitis A Antibody IgM Nonreactive (Nonreactive); Hepatitis B Core IgM Nonreactive (Nonreactive); Hepatitis B Surface Antigen Nonreactive (Nonreactive)
[2018-01-13 05:30] LABS: Hepatitis C Virus Antibody Reactive (Nonreactive)
[2018-01-13 05:41] LABS: Basophils % 0.3 %; Eosinophils # 0.1 K/mcL (0.0-0.6); Eosinophils % 0.9 %; Hematocrit 40.4 % (37.5-50.1); Hemoglobin 14.8 g/dL (12.9-16.9); Immature Granulocytes % 0.5 % (0-4); Lymphocytes # 1.2 K/mcL (0.6-4.6); Lymphocytes % 15.1 %; Mean Corpuscular HGB Conc 36.6 g/dL (31.6-35.5); Mean Corpuscular Hemoglobin 29.7 pg (28.0-33.3); Mean Corpuscular Volume 81.1 fL (83.0-100.0); Mean Platelet Volume 9.8 fL (9.4-12.4); Monocytes # 1.8 K/mcL (0.0-1.3); Monocytes % 22.2 %; Neutrophils # 4.9 K/mcL (1.6-8.9); Platelet Count 358 K/mcL (140-400); Red Blood Count 4.98 M/mcL (4.19-5.50); Red Cell Distribution Width 12.4 % (11.5-14.5)
[2018-01-13 06:00] LABS: Albumin 4.3 g/dL (3.5-5.7); Albumin/Globulin Ratio 1.4 (1.1-2.2); Bilirubin,Total 0.4 mg/dL (0.3-1.0); Calcium 8.6 mg/dL (8.6-10.3); Globulin 3.1 g/dL (2.4-3.5); Total Protein 7.4 g/dL (6.4-8.9)
[2018-01-13 06:01] LABS: Magnesium 3.7 mg/dL (1.6-2.6); Phosphorous 6.9 mg/dL (2.7-4.5)
[2018-01-13 06:08] LABS: Platelet Estimate Normal (Normal)
[2018-01-13] MEDS: 0.9 % Sodium Chloride 1,000 ML IVC SCH ×2 (08:41→15:52)
--- NOTE | 2018-01-13 10:46 | Nephrology Consult Note ---
Date of Encounter: 01/13/18 Time of Encounter: 09:45 Assessment and Plan (1) TITUS (acute kidney injury) Status: Resolved Renal function trending better with IVF and would recommend continue IVF for volume expansion. No HD indicated for now, but will closely follow with you. In the meantime, continue to follow a renal protective strategy and avoid nephrotoxins as able. Thank you for consulting the [facility]. (2) Altered mental status Status: Acute As per primary but likely from polysubstance use Qualifiers: Altered mental status type: somnolence Qualified Code(s): R40.0 - Somnolence (3) Rhabdomyolysis Status: Acute Contributing to the TITUS. IVF / volume expansion recommended as described above. No urgent need for dialysis today. Qualifiers: Rhabdomyolysis type: non-traumatic Qualified Code(s): M62.82 - Rhabdomyolysis History of Present Illness - Reason for Consult Consult date: 01/13/18 Acute Kidney Injury Requesting physician: Soraya Quiroz - Chief Complaint AMS - History of Present Illness 27 y/o WM with a pmh of polysubstance use who presented with AMS and findings of acute renal failure. He was by himself in the exam room (other than a hospital provided monitor) and he was somnolent and unable to provide me any history. Thus limiting the this portion of the note. I did review the progress notes/H&P/ER notes, labs, vitals, imaging, med lists. FHx: he was somnolent and not able to answer my questions about family history. Past Med Surg Social Fam HX - Past Medical History Medical history: no medical history Psychiatric history: anxiety, ADHD, bipolar - Social History Smoking Status: Never smoker Smokeless Tobacco Status: Yes Alcohol use: none Drug use: methamphetamine Medications and Allergies Atomoxetine HCl [Strattera] 50 mg PO Q12H 01/13/18 [History] Omeprazole [PriLOSEC] 40 mg PO DAILY 01/13/18 [History] 3 Allergy/AdvReac Type Severity Reaction Status Date / Time No Known Allergies Allergy Verified 01/13/18 00:15 Review of Systems ROS unobtainable: due to mental status Exam - Vital Signs Vital signs: Initial Vital Signs Temp Pulse Resp BP Pulse Ox 97.9 F 104 18 121/95 99 01/13/18 00:15 01/13/18 00:15 01/13/18 00:15 01/13/18 00:15 01/13/18 00:15 Vital Signs - Last 8 Hours Temp Pulse Resp BP Pulse Ox 01/13/18 08:12 77 15 125/76 99 01/13/18 07:50 98.2 F 77 16 139/99 97 01/13/18 06:35 92 18 134/94 100 Intake and Output 01/12/18 01/13/18 01/13/18 23:59 07:59 15:59 Intake Total 1000 / 2104 480 / 480 Output Total 420 / 420 500 / 500 Balance 580 / 1684 -20 / -20 Intake: IV Fluids 1000 / 1000 0.9 % Sodium Chloride 1,000 ML 1000 / 1000 @ 0 mls/hr .ROUTE .[facility] Rx#:[id number] Oral 480 / 480 Output: Urine 420 / 420 500 / 500 Other: Meal Breakfast Percent of Meal Consumed 50% - General Appearance General appearance: well-developed, well-nourished, appears started age EENT: ATNC Neck: supple Respiratory: clear Cardiology: no edema, normal S1, normal S2 Gastrointestinal: normoactive bowel sounds, no guarding Integumentary: warm and dry Neurologic: confused, disoriented Musculoskeletal: no cyanosis, no clubbing Results - Lab Results 01/14/18 03:37 01/14/18 03:37 Most recent lab results Calcium 8.6 mg/dL (8.6-10.3) 01/13/18 05:18 Phosphorus 6.9 mg/dL (2.7-4.5) H 01/13/18 05:18 Magnesium 3.7 mg/dL (1.6-2.6) H 01/13/18 05:18 Urine Creatinine 165 mg/dL 01/13/18 00:32 Urine Sodium 16.0 mEq/L 01/13/18 00:32 Consult Discharge Plan - Plan Referrals: NONE,PCP [Primary Care Provider] -
[2018-01-13] MEDS ORDERED: *HR* LORazepam 2 MG/ML VIAL ONE (14:07)
[2018-01-13] MEDS: *HR* LORazepam 2 MG/ML VIAL IVP PRN (14:11)
--- NOTE | 2018-01-13 15:51 | Event Note ---
Date of Encounter: 01/13/18 Time of Encounter: 08:00 Patient was seen and examined at bedside, sitter at bedside. He shakes his head, keeps his eyes closed and is not cooperative with providing history. Shakes his head to all questions. Vital signs stable General: easily arrousable howeever is not cooperative with examination. Head: atraumatic, normocephalic, Eye: normal appearance, closes tightly unable to appreciate PERRLA or pupils ENT: mucous membranes moist, normal external ear exam Neck: normal inspection, trachea midline, full ROM,( shakes head with out difficulty) no carotid bruits Chest: normal inspection, symmetric chest rise Respiratory: Good respiratory effort. Bilateral breath sounds are clear without wheezing, crackles, or rhonchi. Cardiovascular: Regular rate and rhythm. s1 and s2 No clicks, rubs, gallops, or murmors. Abdomen: Bowel sounds present normoactive x-4 quadrants. Abdomen is soft, nondistended. no Epigastric tenderness. No guarding or rebound. No organomegaly noted, musculoskeletal: Spontaneously moving all extremities. no edema, no calf tenderness Skin: warm, dry, intact. multiple tattoos all over body Neuro: Easily arousable however is not cooperative with the rest of the examination. Psych: Not cooperative Assessment and plan Acute encephalopathy secondary to drug overdose and suicidal attempt ( heroin and methamphetamine) Acute renal failure most likely secondary to rhabdomyolysis and dehydration Nontraumatic rhabdomyolysis Hepatitis C antibody positive Hypochloremic and hyponatremic most likely secondary to dehydration Hypokalemia Hyperphosphatemia Nephrology was consulted will follow recommendations Potassium replaced follow potassium in the morning Psych was consulted will follow recommendations Ativan 2 mg every 6 hours when necessary for withdrawal IV fluids and 125 mL per hour Renal ultrasound Continuous cardiac and pulse oximetry To one sitter at all times Follow electrolytes closely and replace as needed Follow CBC, CMP, CPK, magnesium, phosphorus, and uric acid in the morning DVT prophylaxis with heparin subcutaneous
[2018-01-13] MEDS: Nicotine 21 MG PATCH.TD24 TD SCH (15:52)
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
[2018-01-14 04:26] LABS: Basophils % 0.4 %; Eosinophils # 0.1 K/mcL (0.0-0.6); Eosinophils % 1.2 %; Hematocrit 34.7 % (37.5-50.1); Immature Granulocytes % 0.4 % (0-4); Lymphocytes # 1.8 K/mcL (0.6-4.6); Lymphocytes % 36.4 %; Mean Corpuscular HGB Conc 35.4 g/dL (31.6-35.5); Mean Corpuscular Volume 84.6 fL (83.0-100.0); Mean Platelet Volume 9.9 fL (9.4-12.4); Monocytes % 19.3 %; Neutrophils # 2.1 K/mcL (1.6-8.9); Platelet Count 291 K/mcL (140-400); Segmented Neutrophils % 42.3 %
[2018-01-14 04:38] LABS: Hemoglobin 12.3 g/dL (12.9-16.9)
[2018-01-14 04:47] LABS: Alanine Aminotransferase 82 Units/L (7-52); Albumin 3.5 g/dL (3.5-5.7); Albumin/Globulin Ratio 1.5 (1.1-2.2); Alkaline Phosphatase 59 Units/L (34-104); Aspartate Amino Transferase 51 Units/L (13-39); BUN/Creatinine Ratio 41 (6-26); Bilirubin,Total 0.3 mg/dL (0.3-1.0); Blood Urea Nitrogen 36 mg/dL (6-20); Calcium 8.8 mg/dL (8.6-10.3); Carbon Dioxide 25 mEq/L (23-29); Chloride 106 mEq/L (98-107); Creatine Kinase 1256 Units/L (30-223); Globulin 2.4 g/dL (2.4-3.5); Glucose 95 mg/dL (70-105); Magnesium 2.1 mg/dL (1.6-2.6); Osmolality,Calculated 292 (280-300); Phosphorous 1.7 mg/dL (2.7-4.5); Potassium 3.9 mEq/L (3.5-5.1); Sodium 137 mEq/L (136-145); Total Protein 5.9 g/dL (6.4-8.9); Uric Acid 7.6 mg/dL (2.3-7.6); eGFR For Non-African Americans > 60 (> 60)
[2018-01-14 05:25] LABS: Platelet Estimate Normal (Normal)
[2018-01-14] MEDS: Ringers Solution, Lactated 1,000 ML IVC SCH ×2 (08:45→21:13)
[2018-01-14] MEDS: Nicotine 21 MG PATCH.TD24 TD SCH (08:46)
--- NOTE | 2018-01-14 08:58 | Event Note ---
Date of Encounter: 01/14/18 Time of Encounter: 08:56 Nephrology Chart Review I see that he was in fact very pre-renal since the IVF dramatically did help the elevated CK nicely trend better and his SCr has normalized too. No need for dialysis. I will sign-off at this time, but please feel free to call or reconsult me if any questions. Thank you.
--- NOTE | 2018-01-14 09:33 | Electrocardiograph Report ---
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
--- NOTE | 2018-01-14 09:33 | Electrocardiograph Report ---
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
[2018-01-14] MEDS: *HR* LORazepam 2 MG/ML VIAL IVP PRN (11:41)
[2018-01-14] MEDS ORDERED: Acetaminophen 325 MG TABLET PO PRN (12:07)
[2018-01-14] MEDS: OXcarbazepine 150 MG TABLET PO SCH ×2 (13:58→20:54)
[2018-01-14] MEDS: ATOMOXETINE HCL PO SCH (14:00)
[2018-01-14] MEDS ORDERED: Ziprasidone injection 20 MG/ML VIAL IM ONE (14:07)
--- NOTE | 2018-01-14 14:09 | Internal Med Progress Note ---
Hospitalist Progress Note - Encounter Date of Encounter: 01/14/18 Time of Encounter: 14:07 - Subjective Interval History: Patient very somnolent this morning when I interviewed him. He complained of generalized body aches. No fevers or chills reported. No episodes of nausea or vomiting. Patient has been having good urine output. - Exam Vitals: Temp Pulse Resp BP Pulse Ox 98.1 F 94 18 124/77 100 01/14/18 12:15 01/14/18 12:15 01/14/18 12:15 01/14/18 12:15 01/14/18 12:15 Exam: General: Patient is somnolent, easily awakes, no acute distress Respiratory: Good respiratory effort. Normal breath sounds. No wheezing or crackles. Cardiovascular: Regular rate and rhythm. s1 and s2 normal No clicks, rubs, gallops, or murmurs. No pedal edema Abdomen: Abdomen is soft, nontender. Bowel sounds are present Musculoskeletal: Spontaneously moving all extremities Skin: warm, dry, intact. Psych: Flat affect - Assessment and Plan (1) Rhabdomyolysis Current Visit: Yes Status: Acute Assessment and Plan: CPK trending down. Pulse 56 today. We will continue IV hydration. Patient is having good urine output. Renal function has returned to baseline. (2) TITUS (acute kidney injury) Current Visit: Yes Status: Resolved Assessment and Plan: due to acute rhabdomyolysis and amphetamine use. Resolved (3) Suicidal ideations Current Visit: Yes Status: Acute Assessment and Plan: Evaluated by psychiatry. Recommended one-to-one sitter. Patient has been pink slipped. Most likely will need psychiatric hospitalization. (4) Altered mental status Current Visit: Yes Status: Acute Assessment and Plan: Somnolent this morning but easily awakes. Encephalopathy most likely patient had toxic metabolic encephalopathy on admission due to amphetamine use (5) Hepatitis C antibody test positive Current Visit: Yes Status: Acute Assessment and Plan: Follow-up outpatient for treatment. (6) Intoxication Current Visit: Yes Status: Acute Assessment and Plan: From amphetamines. (7) Elevated troponin Current Visit: Yes Status: Resolved Assessment and Plan: Likely due to rhabdomyolysis. (8) Hypokalemia Current Visit: Yes Status: Resolved (9) Hyperphosphatemia Current Visit: Yes Status: Resolved - Time Spent with Patient Total time spent is greater than 50% in coordination of care (as documented) at patient's floor/unit and/or counseling patient: Plan of Care Discussed with: nurse Internal Medicine: Result - Labs CBC & Chem 7: 01/14/18 03:37 01/14/18 03:37 Labs: Short CBC 01/14/18 Range/Units 03:37 WBC 5.0 (4.3-11.1) K/mcL Hgb 12.3 L D (12.9-16.9) g/dL Hct 34.7 L (37.5-50.1) % Plt Count 291 (140-400) K/mcL Neutrophils # 2.1 (1.6-8.9) K/mcL BMP 01/14/18 03:37 Sodium 137 D Potassium 3.9 D Chloride 106 Carbon Dioxide 25 BUN 36 H Creatinine 0.88 Glucose 95 Calcium 8.8 Cardiac Enzymes 01/13/18 Range/Units 16:29 Troponin I < 0.03 (< 0.04) ng/mL Liver Function 01/14/18 Range/Units 03:37 Total Bilirubin 0.3 (0.3-1.0) mg/dL AST 51 H (13-39) Units/L ALT 82 H (7-52) Units/L Alkaline Phosphatase 59 (34-104) Units/L Albumin 3.5 (3.5-5.7) g/dL - Impressions Impressions Retroperitoneum Ultrasound 01/13/18 19:00 IMPRESSION: No sonographic abnormality identified of the kidneys or urinary bladder. D/ / Omar Carmona MD / Omar Carmona MD Interpreting Provider: Omar Carmona MD Consult Discharge Plan - Plan Referrals: NONE,PCP [Primary Care Provider] - (1) Rhabdomyolysis Qualifiers: Rhabdomyolysis type: non-traumatic Qualified Code(s): M62.82 - Rhabdomyolysis (4) Altered mental status Qualifiers: Altered mental status type: somnolence Qualified Code(s): R40.0 - Somnolence
[2018-01-14] MEDS ORDERED: *HR* LORazepam 2 MG/ML VIAL IVP PRN ×3 (14:51)
[2018-01-15] MEDS: ATOMOXETINE HCL PO SCH ×2 (03:46→11:44)
[2018-01-15] MEDS: Ringers Solution, Lactated 1,000 ML IVC SCH (05:13)
[2018-01-15] MEDS: Nicotine 21 MG PATCH.TD24 TD SCH (09:30)
[2018-01-15] MEDS: OXcarbazepine 150 MG TABLET PO SCH (09:30)
[2018-01-15] MEDS: *HR* LORazepam 2 MG/ML VIAL IVP PRN (12:18)
--- NOTE | 2018-01-15 14:35 | Psychiatry Progress Note ---
Date of Encounter: 01/15/18 Time of Encounter: 11:45 Subjective Interval history: Psychiatric consultation follow-up: 27 years old male admitted for evaluation treatment of multiple medical conditions including acute renal failure, rhabdomyolysis, encephalopathy, intoxication with amphetamine, in addition suicidal ideation and homicidal ideation. Patient was seen in a psychiatric consultation earlier and this is a follow-up evaluation. Case was reviewed with nursing staff, patient continued to be monitored for kidney function and other medical issues. Patient continued to make statements related to suicidal and homicidal ideation without definite plan or specific person. He answered this question in and evasive manner. And he would not deny suicidal ideation. Review of Systems Psychiatric: Reports: suicidal ideation, auditory hallucinations, irritability, mood swings Results - Vital Signs Vital Signs: Temp Pulse Resp BP Pulse Ox 98.0 F 85 18 157/88 100 01/15/18 12:00 01/15/18 12:00 01/15/18 12:00 01/15/18 12:00 01/15/18 12:00 - Labs Labs: Laboratory Results - last 24 hr 01/15/18 03:15 Creatine Kinase 472 H - Impressions ITS Impressions Retroperitoneum Ultrasound 01/13/18 19:00 IMPRESSION: No sonographic abnormality identified of the kidneys or urinary bladder. D/ / Omar Carmona MD / Omar Carmona MD Interpreting Provider: Omar Carmona MD Assessment and Plan (1) Suicidal ideations Current visit: Yes Status: Acute Additional Plan: 1. Continue medical stabilization 2. When patient medically clear, admitted to 1 a for further evaluation on a pink slip. Please address any questions. Consult Discharge Plan - Plan Referrals: NONE,PCP [Primary Care Provider] - Psychiatry Exam - Constitutional Vitals: Temp Pulse Resp BP Pulse Ox 98.0 F 85 18 157/88 100 01/15/18 12:00 01/15/18 12:00 01/15/18 12:00 01/15/18 12:00 01/15/18 12:00 General appearance: age & developmentally appropriate, well-groomed, well- nourished, average - Musculoskeletal Gait: normal Station: relaxed Strength & Tone: normal for patient - Psychiatric Patient Orientation: Yes Person, Yes Time, Yes Place Level of alertness: Alert Behavior: calm, cooperative, guarded, suspicious Psychomotor activity: Normal Eye Contact: Maintains Eye Contact Mood Description: Euthymic/stable, Depressed Affect description: congruent with mood, constricted Speech Volume: Normal Speech pattern: normal rate, normal rhythm, normal tone, fluent, spontaneous, limited Language & Vocabulary: consistent with education Thought Process: Linear, Goal Oriented Thought Content: Yes Suicidal ideation, Yes Homicidal ideation, No Overt delusions Perceptual Disturbances: No Auditory hallucinations, No Visual hallucinations Attention Span Ability: Capable of Focused Attention Memory Description: Grossly Intact Patient Reliability: Reliable Historian Fund of knowledge: Yes abstraction ability, Yes aware of current events Intelligence Estimate: Average Judgment: Limited Insight: Partial
--- NOTE | 2018-01-15 14:48 | Discharge Summary ---
- NOTES TO OUTPATIENT PROVIDER Notes to Outpatient Provider: Patient was hospitalized here with suicidal/ homicidal ideation and visual hallucinations along with recent substance abuse. His drug screen was positive for amphetamines. Patient did have elevated CPK and acute kidney injury suggestive of rhabdomyolysis. He was treated with IV fluids and his renal function has slowly improved and it has finally normalized. His CPK has also trended down and continues to improve. Patient is clinically stable for discharge from medical standpoint. He will be admitted to inpatient psychiatric unit for further care. Date of Encounter: 01/15/18 Time of Encounter: 11:00 - Discharge Diagnosis (1) Rhabdomyolysis Priority: Primary Status: Acute Qualifiers: Rhabdomyolysis type: non-traumatic Qualified Code(s): M62.82 - Rhabdomyolysis (2) TITUS (acute kidney injury) Priority: Secondary Status: Resolved (3) Suicidal ideations Priority: Secondary Status: Acute (4) Altered mental status Priority: Secondary Status: Acute Qualifiers: Altered mental status type: somnolence Qualified Code(s): R40.0 - Somnolence (5) Hepatitis C antibody test positive Priority: Secondary Status: Acute (6) Intoxication Priority: Secondary Status: Acute (7) Elevated troponin Priority: Secondary Status: Resolved (8) Hypokalemia Priority: Secondary Status: Resolved (9) Hyperphosphatemia Priority: Secondary Status: Resolved Hospital course: Mr. Acosta is a 27 year old male Patient to history of anxiety, ADHD, bipolar disorder who was hospitalized here with suicidal/homicidal ideation and visual hallucinations along with recent substance abuse. His drug screen was positive for amphetamines. Patient did have elevated CPK and acute kidney injury suggestive of rhabdomyolysis. He was treated with IV fluids and his renal function has slowly improved and it has finally normalized. His CPK has also trended down and continues to improve. Patient is clinically stable for discharge from medical standpoint. He will be admitted to inpatient psychiatric unit for further care. Discharge discussed with: patient, nurse - Time Spent with Patient Total time spent providing and/or coordinating discharge services: Less than 30 minutes (25 min) - Discharge Medications Home Medications: Atomoxetine HCl [Strattera] 50 mg PO Q12H 01/13/18 [History] Omeprazole [PriLOSEC] 40 mg PO DAILY 01/13/18 [History] Allergies/Adverse Reactions: 3 Allergy/AdvReac Type Severity Reaction Status Date / Time No Known Allergies Allergy Verified 01/13/18 00:15 Date of admission: 01/13/18 06:11 Primary care physician: PCP NONE Consults: 01/13/18 06:38 Consult to Nephrology [CONS] Routine Consulting Provider: [facility] [place]/REINA/GUNNER/ROVERTO Reason for Consult: TITUS creatinine 4.6 with no previous history, in the setting of Rhabdomyolysis and drug intoxication Call Completed: No 01/13/18 10:56 Consult to Nutrition [CONS] Routine Comment: Consulting Provider: NUTRITION Reason for Dietary Consult: Other Other:: Unsure of pt nutrition. Homeless Consult to Medical Physics Teacher [CONS] Routine Reason for SW Consult: Homeless, drug use meth and IV heroine 01/13/18 14:00 Consult to Psychiatry [CONS] Routine Consulting Provider: [facility] [place] Reason consult: Other Other reason and/or additional details: suicidal with plan Time Notified: 14:02 Call Completed: Yes Discharging clinician: Albert Cronin Anticipated date of discharge: 01/15/18 - Constitutional Vitals: Temp Pulse Resp BP Pulse Ox 98.0 F 85 18 157/88 100 01/15/18 12:00 01/15/18 12:00 01/15/18 12:00 01/15/18 12:00 01/15/18 12:00 General appearance: Present: cooperative, A&O X 3, answers questions appropriately Exam: . - Respiratory Respiratory exam: Present: CTAB. Absent: accessory muscle use, rales, rhonchi, wheezes - Cardiovascular Cardiovascular exam: Present: RRR, +S1, +S2. Absent: diastolic murmur, gallop, rubs, systolic murmur - Patient Status Disposition: Home, Self-Care Condition: Good Functional capacity at discharge: independent ambulation Overall status at discharge: patient is progressing back to baseline - Discharge Instructions Follow Up With: NONE,PCP [Primary Care Provider] - - Diet and Activity Activity: increase activity as tolerated Diet: advance to your usual diet - VTE Documentation of Mechanical Device: Graduated compression elastic hosiery
[2018-01-15 16:05] VITALS: BP 151/82
== END 2018-01-15 19:40 | DRG 817 ==
LOC: EMEROOARM 00:11 → SUATTDRO 06:11 → 2NNU 06:11
PROVIDERS: ADMIT Internal Medicine; ATTEND Internal Medicine

== ENCOUNTER 2018-01-15 19:59 | Observation (INO) ==
[2018-01-15] MEDS ORDERED: hydrOXYzine pamoate 25 MG CAPSULE PO PRN (20:17)
[2018-01-15] MEDS ORDERED: *HR* LORazepam 2 MG/ML VIAL IM PRN (20:17)
[2018-01-15] MEDS ORDERED: Acetaminophen 325 MG TABLET PO PRN (20:17)
[2018-01-15] MEDS ORDERED: MOM Conc 10 ML UD.LIQ PO PRN (20:17)
[2018-01-15] MEDS ORDERED: Mag Hydrox/Al Hydrox/Simeth 30 ML UDC PO PRN (20:17)
[2018-01-15] MEDS ORDERED: traZODone 50 MG TABLET PO PRN (20:17)
[2018-01-15] MEDS ORDERED: Haloperidol Lactate 5 MG/ML VIAL IM PRN (20:17)
[2018-01-15] MEDS: *HR* LORazepam 1 MG TABLET PO PRN (20:55)
[2018-01-15] MEDS: OXcarbazepine 150 MG TABLET PO SCH (21:32)
[2018-01-15] MEDS: ATOMOXETINE HCL PO SCH (21:34)
[2018-01-15] MEDS: Nicotine 2 MG GUM BC PRN (21:35)
[2018-01-16] MEDS: OXcarbazepine 150 MG TABLET PO SCH (08:27)
[2018-01-16] MEDS: ATOMOXETINE HCL PO SCH (08:27)
[2018-01-16 09:42] VITALS: BP 119/77
[2018-01-16] MEDS: Nicotine 2 MG GUM BC PRN (12:02)
--- NOTE | 2018-01-16 12:07 | Discharge Summary ---
Date of Encounter: 01/16/18 Time of Encounter: 11:30 History of Present Illness Chief complaint: Polysubstance abuse/intoxication, suicidal ideation, homicidal ideation Admitted From: Intrahospital Transfer (2N) History of Present Illness: Mr. Acosta is a 27 year old male Past Med Surg Social Fam HX - Past Medical History Medical history: no medical history, hepatitis - Past Psychiatric History Psychiatric history: Reports: bipolar, other (No records, patient states) - Past Surgical History Surgical History: other - Social History Smoking Status: Light tobacco smoker Smokeless Tobacco Status: No Alcohol use: heavy Drug use: opiates, methamphetamine, IV Drug Use Medications - Discharge Medications Atomoxetine HCl [Strattera] 50 mg PO Q12H 01/13/18 [History] Omeprazole [PriLOSEC] 40 mg PO DAILY 01/13/18 [History] 3 Allergy/AdvReac Type Severity Reaction Status Date / Time No Known Allergies Allergy Verified 01/13/18 00:15 Review of Systems Psychiatric: Reports: suicidal ideation, homicidal ideation Exam - HEENT Head exam IM: Present: atraumatic Eye exam IM: Present: EOMI, normal appearance, PERRL ENT exam IM: Present: normal exam - Neurological Neurological exam: Present: CN II-XII intact - Respiratory Respiratory exam IM: Present: CTAB - GI/Abdominal GI/Abdominal exam IM: Present: normal bowel sounds, soft. Absent: tenderness - Extremities Extremities exam IM: Present: full ROM - Skin Skin exam IM: Present: dry, warm - Constitutional Vitals: Temp Pulse Resp BP Pulse Ox 98.8 F 98 16 119/77 97 01/16/18 09:00 01/16/18 09:00 01/16/18 09:00 01/16/18 09:00 01/16/18 09:00 General appearance: age & developmentally appropriate, well-groomed, well- nourished, average, other ( body tattoos) - Musculoskeletal Gait: normal Station: relaxed Strength & Tone: normal for patient - Psychiatric Patient Orientation: Yes Person, Yes Time, Yes Place Level of alertness: Alert Behavior: calm, cooperative, hostile, guarded Psychomotor activity: Normal Eye Contact: Maintains Eye Contact Mood Description: Euthymic/stable, Irritable Affect description: congruent with mood, dysphoric Speech Volume: Normal Speech pattern: normal rate, normal rhythm, normal tone, fluent, spontaneous Language & Vocabulary: consistent with education Thought Process: Linear, Goal Oriented Thought Content: No Suicidal ideation, No Homicidal ideation, No Overt delusions Perceptual Disturbances: No Auditory hallucinations, No Visual hallucinations Attention Span Ability: Capable of Focused Attention Memory Description: Grossly Intact Patient Reliability: Reliable Historian Fund of knowledge: Yes abstraction ability, Yes average, Yes aware of current events Intelligence Estimate: Average Judgment: Limited Insight: Partial Diagnosis - Discharge Diagnosis (1) Suicidal ideations Status: Acute (2) Homicidal ideations Status: Acute (3) Polysubstance (including opioids) dependence, daily use Status: Acute Assessment and Plan - Patient/Caregiver Discharge Instructions Activity: resume usual activities as tolerated Diet: regular diet - Follow up Plan Follow up with: NONE,PCP [Primary Care Provider] - Functional capacity at discharge: independent ambulation Overall status at discharge: Stable Disposition: Home, Self-Care Provider Date of admission: 01/15/18 19:59 Discharging clinician: Alon Espino Hospital Course Hospital course: Mr. Acosta is a 27 year old male admitted from the medical floor after medical stabilization for suicidal and homicidal ideation and polysubstance dependence including amphetamine and opiates. On the unit the patient was observed as observation status he was medically stable. His discharge plans were completed to get the patient into rehabilitation program and patient was interested in discharge to his girlfriend and the following at the rehabilitation. Details of discharge plans are on the record by social work. Prior to discharge patient was medically stable denies suicidal or homicidal ideation he was future oriented and showing improved insight and judgment he is discharged in stable condition. - Time Spent with Patient Total time spent providing and/or coordinating discharge services: Greater than 30 minutes Procedures - Procedures Procedures: Medication Management, Crisis Stabilization, Supportive Therapy, Group Therapy, Psychoeducational Therapy Quality - Multiple Antipsychotics Patient discharged on 2 or more antipsychotic medications: No
[2018-01-16] MEDS: *HR* LORazepam 1 MG TABLET PO PRN (12:22)
== END 2018-01-16 16:15 | disposition home or self-care (01) ==
LOC: 1ANU 19:59 → INTOOBSV 19:59
PROVIDERS: ADMIT Psychiatry & Neurology Psychiatry; ATTEND Psychiatry & Neurology Psychiatry